=== PATIENT | female | born 1990 | race Caucasian/White ===

== ENCOUNTER → 2024-06-05 10:20 | Outpatient (CLI) | payer OTHER, SELFPAY ==
--- NOTE | 2024-06-05 10:23 | DI.US.S_ITS ---
PROCEDURE: US PELVIC COMPLETE INDICATIONS: DYSMENORRHEA/IUD/HX UTERINE FIBROID/OVARIAN CYST TECHNIQUE: Real-time scanning was performed of the pelvic organs, with image documentation. Additional endovaginal scanning was necessary due to incomplete visualization of the adnexal and endometrial structures by transabdominal scanning. COMPARISON: None. FINDINGS: Uterus: 8.3 x 4.8 x 3.7 cm. Endometrium measures 2 mm, within normal limits. Intramural fibroids are seen, on the right measuring 1.5 x 1.1 cm and on the left measuring 0.9 x 0.6 cm. The IUD is seen within the endometrium. Ovaries: The right ovary is significantly enlarged measuring 67 cc. Complex hemorrhagic appearing cyst measuring 5.9 x 4.1 cm. Color and spectral flows are seen in the ovarian parenchyma. There is an echogenic focus at the periphery of this lesion. The left ovary is nonenlarged at 6 cc. Left adnexal isoechoic lesion measures 3.3 x 1.8 cm with adjacent fluid. Other: No pathologic free abdominal or pelvic fluid. IMPRESSION: Large complex appearing cyst measuring 5.9 x 4.1 cm, possibly hemorrhagic. Differential includes an endometrioma or partially solid lesion. Left adnexal isoechoic region measuring 3.3 x 1.8 cm with vascularity and adjacent fluid. These findings are indeterminate and gynecologic protocol MRI is recommended. Small uterine fibroids. Dictated by: Panchito Wiley M.D. on 06/05/2024 at 19:06 Approved by: Panchito Wiley M.D. on 06/05/2024 at 19:09
== END ==
LOC: US 10:23
PROVIDERS: PCP Family Medicine; Referring Provider Family Medicine; Visit Provider Family Medicine
DX: N83.8 Other noninflammatory disorders of ovary, fallopian tube and broad ligament (principal); D25.1 Intramural leiomyoma of uterus; N94.6 Dysmenorrhea, unspecified; Z97.5 Presence of (intrauterine) contraceptive device; Z86.018 Personal history of other benign neoplasm; Z87.42 Personal history of other diseases of the female genital tract
CPT/HCPCS: 76830; 76856; 93976